=== PATIENT | male | born 1970 | race Hispanic/Latino ===

== ENCOUNTER → 2017-12-17 | Outpatient (RCR) | payer BC ==
[~2017-12-17] MED LIST: GLUCOVANCE
== END ==
LOC: PT 07:51
PROVIDERS: ATTEND Specialist
DX: S46.012A Strain of muscle(s) and tendon(s) of the rotator cuff of left shoulder, initial encounter (principal)

== ENCOUNTER 2018-01-11 07:00 | Outpatient (RCR) | payer BC | END 2018-01-16 | LOC: PT 07:00 | PROVIDERS: ATTEND Specialist | DX: S46.012D Strain of muscle(s) and tendon(s) of the rotator cuff of left shoulder, subsequent encounter (principal); M25.512 Pain in left shoulder; M25.612 Stiffness of left shoulder, not elsewhere classified; M62.81 Muscle weakness (generalized) ==

== ENCOUNTER → 2018-11-11 | Day surgery (SDC) | payer BC ==
[2018-11-09 14:44] LABS: BASOPHILS % 0.5 % (0.0-1.0); EOSINOPHILS # (AUTO) 0.1 (0.0-0.4); EOSINOPHILS % 2.2 % (0.0-6.0); HEMATOCRIT 43.7 % (38.2-49.6); HEMOGLOBIN 14.4 g/dL (14.0-18.0); LYMPHOCYTES # (AUTO) 1.3 (1.0-3.2); LYMPHOCYTES % 20.2 % (18.0-39.1); MEAN CORPUSCULAR HEMOGLOBIN 26.1 pg (28-32); MEAN CORPUSCULAR VOLUME 79.3 fL (81-99); MONOCYTES # (AUTO) 0.6 (0.2-0.8); MONOCYTES % 9.4 % (4.4-11.3); NEUTROPHILS # (AUTO) 4.3 (2.1-6.9); NEUTROPHILS % 67.4 % (38.7-80.0); PLATELET COUNT 247 x10e3/uL (140-360); RED BLOOD COUNT 5.51 x10e6/uL (4.3-5.7); RED CELL DISTRIBUTION WIDTH 13.9 % (11.7-14.4)
[2018-11-09 15:05] LABS: ANION GAP 13.1 mmol/L (8-16); BLOOD UREA NITROGEN 10 mg/dL (7-26); BUN/CREATININE RATIO 13 (6-25); CALCIUM 9.8 mg/dL (8.4-10.2); CARBON DIOXIDE 27 mmol/L (22-29); CHLORIDE 100 mmol/L (98-107); CREATININE, SERUM 0.79 mg/dL (0.72-1.25); EST GLOMERULAR FILTRATION RATE > 60 ML/MIN (60-); GLUCOSE 192 mg/dL (74-118); POTASSIUM 4.1 mmol/L (3.5-5.1); SODIUM 136 mmol/L (136-145)
[~2018-11-11] MED LIST changes: +AMLODIPINE BESY10 MG PO; +BUPIVACAINE 0.25%/EPI 30ML SDV INJ ONE; +DEXAMETHASONE SOD PHOS INJ 4 MG/ML VIAL ONE; +FENTANYL CITRATE/PF 100MCG/2 ML INJ ONE; +HYDROGEN PEROXIDE 120 ML BTL ONE; +LIDOCAINE HCL 2% LOCAL INJ 5 ML SDV VIAL INJ ONE; +LISINOPRIL-HCT1 EAC1 PO; +METFORMIN HCL500 MG PO; +MIDAZOLAM HCL 2 MG/2 ML VIAL ONE; +ONDANSETRON HCL INJ 2MG/ML 2ML 2 MG/ML VIAL ONE; +PROPOFOL IV EMULSION 10 MG/ML 20 ML VIAL ONE; +SEVOFLURANE INHAL SOLN 250 ML PEN BTL ONE
--- NOTE | 2018-11-11 08:58 | Operative Report ---
DATE OF PROCEDURE: 11/11/2018 SURGEON: Rodger Senior MD PREOPERATIVE DIAGNOSIS: Previously drained epidermal inclusion cyst of the presternal area. POSTOPERATIVE DIAGNOSIS: Previously drained epidermal inclusion cyst of the presternal area. PROCEDURE PERFORMED: Excision of previously drained epidermal inclusion cyst of the presternal area with flap closure. ANESTHESIA: General. ESTIMATED BLOOD LOSS: Minimal. DRAINS: None. COMPLICATIONS: None. TRACK RIDER: Nika Wilburn, licensed surgical device sales representative. INDICATION AND FINDINGS: This patient is a 48-year-old male, who had in the past ID of infected epidermal inclusion cyst of the presternal area, now admitted for excision. He is a diabetic. The patient's incision in the mid presternal area, was in a cruciate fashion had healed and then the area with surrounding inflammation was removed. Full thickness subcutaneous flaps were raised with electrocautery to be able to close the wound. DESCRIPTION OF PROCEDURE: With the patient lying on the operative table in the supine position and after administration of general endotracheal anesthesia, he was prepped and draped for excision with flap closure of previously drained epidermal inclusion cyst of the presternal area. Preemptive anesthesia was given with 0.25% Marcaine with epinephrine and then an elliptical incision was made across the scar and then the dissection was carried down through the skin, subcutaneous tissue, down to the fascia. The entire specimen was removed en bloc. Bleeding points were cauterized. Full-thickness flaps were raised with electrocautery. Then, the wound was irrigated with saline and peroxide and closed in two layers using 2-0 Vicryl for the soft tissues and 3-0 silk for the skin. Sterile dressing was applied. The patient tolerated the procedure well, taken to recovery room in stable condition. MD JORI Gonzalez/MODL /[id number]
[2018-11-11 09:35] VITALS: BP 108/70
== END | disposition home or self-care (01) ==
LOC: OR 05:42
PROVIDERS: ATTEND Surgery
DX: L72.0 Epidermal cyst (principal); L90.5 Scar conditions and fibrosis of skin; I10 Essential (primary) hypertension; E11.9 Type 2 diabetes mellitus without complications; Z01.810 Encounter for preprocedural cardiovascular examination; Z01.812 Encounter for preprocedural laboratory examination; Z79.84 Long term (current) use of oral hypoglycemic drugs
CPT/HCPCS: 14000; 36415 ×2; 80048; 82948; 85025; 88305; 93005; J1100; J2001; J2250; J2405; J2704; J3010; 88304

== ENCOUNTER → 2019-03-22 | Outpatient (CLI) | payer BC ==
[~2019-03-22] MED LIST changes: -BUPIVACAINE 0.25%/EPI 30ML SDV INJ ONE; -DEXAMETHASONE SOD PHOS INJ 4 MG/ML VIAL ONE; -FENTANYL CITRATE/PF 100MCG/2 ML INJ ONE; -HYDROGEN PEROXIDE 120 ML BTL ONE; +IOPAMIDOL 370 MG/ML 200 ML INFUS..BTL INJ ONE; -LIDOCAINE HCL 2% LOCAL INJ 5 ML SDV VIAL INJ ONE; -MIDAZOLAM HCL 2 MG/2 ML VIAL ONE; -ONDANSETRON HCL INJ 2MG/ML 2ML 2 MG/ML VIAL ONE; -PROPOFOL IV EMULSION 10 MG/ML 20 ML VIAL ONE; -SEVOFLURANE INHAL SOLN 250 ML PEN BTL ONE; +SODIUM CHLORIDE 0.9% 50ML 50 ML ONE
[2019-03-22 08:27] LABS: BLOOD UREA NITROGEN 8 mg/dL (7-26); BUN/CREATININE RATIO 10 (6-25); CREATININE, SERUM 0.77 mg/dL (0.72-1.25); EST GLOMERULAR FILTRATION RATE > 60 ML/MIN (60-)
--- NOTE | 2019-03-22 09:34 | Diagnostic Imaging Report ---
CT of the chest, with contrast, 03/22/2019. History: Persistent cough. Comparison: None available. Technique: Multidetector CT scanning of the chest was performed from the level of the apices to the upper abdomen after intravenous administration of contrast. Coronal and sagittal multiplanar reformations were obtained. RADIATION DOSE: Total DLP: 600 mGy*cm Dose modulation, iterative reconstruction, and/or weight based adjustment of the mA/kV was utilized to reduce the radiation dose to as low as reasonably achievable. Discussion: Chest: The atria, ventricles, aorta, and main pulmonary artery are normal in size. The thyroid is unremarkable. There is no evidence of axillary or mediastinal adenopathy. The airways are patent. There is minimal bibasilar dependent atelectasis. There is no evidence of consolidation, mass, or pleural effusion. Limited evaluation of the upper abdomen shows normal adrenal glands. Bones and soft tissues: No acute abnormality. Degenerative changes are present throughout the thoracic spine. IMPRESSION: No pulmonary abnormality. Signed by: Pako Tyson on 03/22/2019 9:30 AM
== END ==
LOC: CT 07:42
PROVIDERS: ATTEND Internal Medicine
DX: J18.9 Pneumonia, unspecified organism (principal); J20.9 Acute bronchitis, unspecified
CPT/HCPCS: 36415; 71260; 82565; 84520; Q9967

== ENCOUNTER → 2022-02-16 | Day surgery (SDC) | payer BC ==
[~2022-02-16] MED LIST changes: +ASHWAGANDHA500 MG PO; +ASPRIN PO; +CLARITIN10 MG PO; +GLUCAGON FOR INJ 1 MG VIAL ONE; +HYOSCYAMINE SULFATE 0.5 MG/ML INJ ONE; -IOPAMIDOL 370 MG/ML 200 ML INFUS..BTL INJ ONE; +LIDOCAINE HCL 2% LOCAL INJ 5 ML SDV VIAL INJ ONE; +LISINOPRIL10 MG PO; +PROPOFOL IV EMULSION 10 MG/ML 50 ML VIAL IV ONE; -SODIUM CHLORIDE 0.9% 50ML 50 ML ONE
[2022-02-16 10:32] VITALS: BP 112/76
== END | disposition home or self-care (01) ==
LOC: OR 07:35
PROVIDERS: ATTEND Internal Medicine Gastroenterology
DX: Z12.11 Encounter for screening for malignant neoplasm of colon (principal); D12.3 Benign neoplasm of transverse colon; D12.4 Benign neoplasm of descending colon; D12.8 Benign neoplasm of rectum; K64.8 Other hemorrhoids; K62.89 Other specified diseases of anus and rectum; E11.9 Type 2 diabetes mellitus without complications; I10 Essential (primary) hypertension; Z01.810 Encounter for preprocedural cardiovascular examination; Z79.82 Long term (current) use of aspirin; Z79.84 Long term (current) use of oral hypoglycemic drugs; Z79.899 Other long term (current) drug therapy
CPT/HCPCS: 36415; 45385; 82948; 93005; J1610; J1980; J2001; J2704; 45378; 45380

== ENCOUNTER → 2024-04-13 | Day surgery (SDC) | payer BC ==
[~2024-04-13] MED LIST changes: +ASPIRIN81 MG PO; +FENTANYL CITRATE/PF 100MCG/2 ML INJ ONE; -GLUCAGON FOR INJ 1 MG VIAL ONE; -HYOSCYAMINE SULFATE 0.5 MG/ML INJ ONE; +MIDAZOLAM HCL 2 MG/2 ML VIAL ONE; +PROPOFOL IV EMULSION 10 MG/ML 20 ML VIAL ONE; -PROPOFOL IV EMULSION 10 MG/ML 50 ML VIAL IV ONE; +ROSUVASTATIN CAL5 MG PO; +RYBELSUS14 MG PO
[2024-04-13] MEDS: LACTATED RINGER'S 1,000 ML ONE (07:47)
[2024-04-13 09:50] VITALS: BP 118/70; PULSE 88; RESP 18; O2SAT 98
== END | disposition home or self-care (01) ==
LOC: OR 07:39
PROVIDERS: ATTEND Internal Medicine Gastroenterology
DX: Z09 Encounter for follow-up examination after completed treatment for conditions other than malignant neoplasm (principal); D12.3 Benign neoplasm of transverse colon; K63.89 Other specified diseases of intestine; K64.8 Other hemorrhoids; E11.9 Type 2 diabetes mellitus without complications; I10 Essential (primary) hypertension; Z01.810 Encounter for preprocedural cardiovascular examination; E78.5 Hyperlipidemia, unspecified; K44.9 Diaphragmatic hernia without obstruction or gangrene; Z79.82 Long term (current) use of aspirin; Z79.84 Long term (current) use of oral hypoglycemic drugs; Z79.899 Other long term (current) drug therapy; Z85.528 Personal history of other malignant neoplasm of kidney
CPT/HCPCS: 45380; 45385; 93005; J2003; J2250; J2704; J3010; J7121; 45378